=== PATIENT | female | born 2000 | race Native Hawaiian/Other Pacific Islander ===

== ENCOUNTER 2019-04-13 07:13 | Emergency (ER) | payer BC ==
[~2019-04-13] VITALS: Ht 157.5 cm; Wt 81.6 kg
[2019-04-13] MEDS ORDERED: LEVE5MLUD PO (07:24)
[2019-04-13 07:35] LABS: PLATELET COUNT 374 K/uL (152-353)
[2019-04-13 07:46] LABS: POTASSIUM 3.2 mmol/L (3.6-5.2)
[2019-04-13 08:20] VITALS: BP 124/89
== END 2019-04-13 08:20 | disposition short-term general hospital (02) ==
LOC: ED 07:13
PROVIDERS: Student in an Organized Health Care Education/Training Program
PROC: 2W3RX1Z Immobilization of Left Lower Leg using Splint (ICD-10-PCS; principal; 2019-04-13)
PROC: 0QSHXZZ Reposition Left Tibia, External Approach (ICD-10-PCS; 2019-04-13)
PROC: 0QSKXZZ Reposition Left Fibula, External Approach (ICD-10-PCS; 2019-04-13)
DX: S82.892A Other fracture of left lower leg, initial encounter for closed fracture (principal); S62.102A Fracture of unspecified carpal bone, left wrist, initial encounter for closed fracture; R00.0 Tachycardia, unspecified; V47.0XXA Car driver injured in collision with fixed or stationary object in nontraffic accident, initial encounter
CPT/HCPCS: 80053; 85027; 86850; 86900; 86901; 93005; 96360; 96365; 96375; 99285; J0690; J2250; J2270; J2405

== ENCOUNTER 2019-12-19 15:59 | Outpatient (CLI) | payer BC ==
[~2019-12-19 15:59] MED LIST: LEVE5MLUD PO
== END 2019-12-19 19:13 | disposition home or self-care (01) ==
LOC: LABW 15:59
DX: R56.9 Unspecified convulsions (principal)
CPT/HCPCS: 36415; 82542